=== PATIENT | female | born 1960 | race Caucasian/White ===

== ENCOUNTER 2023-02-07 10:08 | Outpatient (CLI) | payer OTHER | END 2023-02-07 10:09 | disposition home or self-care (01) | LOC: ULT 10:08 | PROVIDERS: ATTEND Family Medicine | DX: G62.9 Polyneuropathy, unspecified (principal) | CPT/HCPCS: 93923 ==

== ENCOUNTER 2023-06-01 10:39 | Inpatient (IN) | payer OTHER ==
[2023-06-01 11:31] LABS: #Basophils 0.1 thou/uL (0.0-0.2); #Eosinphils 0.1 thou/uL (0.0-0.7); #Monocytes 0.9 thou/uL (0.11-0.59); #Neutrophils 8.6 thou/uL (1.40-6.50); %Basophils 0.7 % (0.0-1.0); %Eosinophils 1.1 % (0.0-10.0); %Lymphocytes 13.8 % (21.0-51.0); %Neutrophils 75.8 % (42.0-75.0); Hematocrit 31.8 % (36.0-47.0); Hemoglobin 9.8 g/dL (12.0-16.0); Mean Corpuscular HGB CONC 30.8 g/dL (32.0-36.0); Mean Corpuscular Hemoglobin 29.6 pg (27.0-31.0); Mean Corpuscular Volume 96.1 fl (78.0-98.0); Mean Platelet Volume 9.9 fL (7.4-10.4); Platelet Count 296 10x3/uL (130-400); RBC Distribution Width 14.7 % (11.5-14.5); Red Blood Cell (RBC) Count 3.31 mill/uL (4.20-5.40); White Blood Cell (WBC) Count 11.3 10x3/uL (4.8-10.8)
[2023-06-01 11:47] LABS: ALT (SGPT) 8 U/L (8-55); AST (SGOT) 22 U/L (5-34); Albumin 3.9 g/dL (3.4-4.8); Alkaline Phosphatase 56 U/L (40-110); Anion Gap 18 mmol/L (10-20); Bilirubin, Total 0.2 mg/dL (0.2-1.2); Calc. Creatinine Clearance 0 mL/min (70-130); Calcium 9.2 mg/dL (7.8-10.44); Carbon Dioxide 20 mmol/L (23-31); Chloride 105 mmol/L (98-107); Estimated GFR 16; Globulin 3.6 g/dL (2.4-3.5); Glucose 105 mg/dL (80-115); Potassium 4.8 mmol/L (3.5-5.1); Protein, Total 7.5 g/dL (5.8-8.1); Sodium 138 mmol/L (136-145)
[2023-06-01 11:58] LABS: BUN (Urea Nitrogen) 124 mg/dL (9.8-20.1)
[2023-06-01 12:07] LABS: Troponin I Less than 0.010 ng/mL (< 0.028)
[2023-06-01] MEDS ORDERED: Acetaminophen 325 MG TAB ONE (13:07)
[2023-06-01 13:23] LABS: Bilirubin Negative (Negative); Blood, Urine Negative (Negative); CAUTI Indications for Culture Dysuria,urgency,freq; Clarity Turbid (Clear); Glucose, Urine (Dipstick) Normal (Negative); Ketone, Urine Negative (Negative); Leukocyte 500 Leu/uL (Negative); Nitrite 2+ (Negative); Protein, Urine (Dipstick) 20 mg/dL (Neg-Trace); RBC/HPF 0-3 HPF (0-3); Specific Gravity, Urine 1.018 (1.002-1.036); Squamous Epithelial 0-3 HPF (0-3); Urobilinogen Normal mg/dL (Less than 2); WBC/HPF Greater than 50 HPF (0-3); pH, Urine 5.5 (5.0-9.0)
[2023-06-01 13:24] LABS: Bacteria/HPF 1+ HPF (None Seen)
[2023-06-01 13:25] LABS: Urine Culture Reflex Yes Yes
[2023-06-01] MEDS ORDERED: Sodium Chloride 0.9% 1,000 ML IV SCH ×2 (17:00→19:02)
[2023-06-01] MEDS ORDERED: Dextrose 50% Abboject 50 ML SYRINGE SLOW IVP PRN (17:05)
[2023-06-01] MEDS ORDERED: Insulin Regular 300 UNITS/3 ML VIAL SC PRN ×2 (17:05)
[2023-06-01] MEDS ORDERED: Dextrose 5% in Water 1,000 ML IV PRN (17:05)
[2023-06-01] MEDS ORDERED: Glucagon 1 MG/ML KIT IM PRN (17:05)
[2023-06-01] MEDS ORDERED: Ondansetron ODT 4 MG TAB PO PRN (17:08)
[2023-06-01] MEDS ORDERED: Ondansetron PF 4 MG/2 ML Vial IVP PRN (17:08)
[2023-06-01] MEDS ORDERED: Calcium Carbonate 500 MG ChewTAB PO PRN (17:08)
[2023-06-01] MEDS ORDERED: GUAIFENESIN SF SOLN 200 MG/10 ML UDCUP PO PRN (17:26)
[2023-06-01] MEDS ORDERED: cefTRIAXone (ROCEPHIN) 1 GM VIAL ONE (17:34)
[2023-06-01] MEDS: Doxycycline 100 MG CAP PO SCH (20:39)
[2023-06-01] MEDS: Famotidine 20 MG TAB PO SCH (20:39)
[2023-06-01] MEDS: cefTRIAXone\\ROCEPHIN 1 GM in Sodium Chloride 0.9% 100 ML IVPB SCH (20:47)
[2023-06-02 04:07] LABS: #Basophils 0.1 thou/uL (0.0-0.2); #Eosinphils 0.1 thou/uL (0.0-0.7); #Monocytes 0.8 thou/uL (0.11-0.59); %Basophils 0.6 % (0.0-1.0); %Eosinophils 1.1 % (0.0-10.0); %Lymphocytes 14.4 % (21.0-51.0); %Monocytes 8.6 % (0.0-10.0); %Neutrophils 74.4 % (42.0-75.0); Hematocrit 32.9 % (36.0-47.0); Hemoglobin 10.2 g/dL (12.0-16.0); Mean Corpuscular Hemoglobin 29.5 pg (27.0-31.0); Mean Corpuscular Volume 95.1 fl (78.0-98.0); Mean Platelet Volume 9.9 fL (7.4-10.4); Platelet Count 325 10x3/uL (130-400); RBC Distribution Width 14.6 % (11.5-14.5); Red Blood Cell (RBC) Count 3.46 mill/uL (4.20-5.40); White Blood Cell (WBC) Count 9.4 10x3/uL (4.8-10.8)
[2023-06-02 04:37] LABS: Carbon Dioxide 21 mmol/L (23-31)
[2023-06-02 04:38] LABS: Albumin 3.7 g/dL (3.4-4.8); BUN (Urea Nitrogen) 114 mg/dL (9.8-20.1); BUN/Creatinine Ratio 49.14; Calc. Creatinine Clearance 34 mL/min (70-130); Calcium 9.4 mg/dL (7.8-10.44); Chloride 109 mmol/L (98-107); Estimated GFR 23; Glucose 98 mg/dL (80-115); Phosphorus 4.2 mg/dL (2.3-4.7); Potassium 4.4 mmol/L (3.5-5.1); Sodium 141 mmol/L (136-145)
[2023-06-02 04:48] LABS: Anion Gap 15 mmol/L (10-20)
[2023-06-02] MEDS: Nystatin Powder 15 GM BOT TOP SCH ×3 (05:30→19:22)
[2023-06-02] MEDS ORDERED: Acetaminophen 325 MG TAB PO PRN (06:00)
[2023-06-02] MEDS ORDERED: Acetaminophen 325 MG TAB PO SCH (06:15)
[2023-06-02] MEDS ORDERED: Lorazepam 1 MG TAB PO PRN (06:47)
[2023-06-02] MEDS: Doxycycline 100 MG CAP PO SCH ×2 (09:48→19:20)
[2023-06-02] MEDS: Sodium Bicarbonate Tab 325 MG TAB PO SCH ×3 (09:48→19:38)
[2023-06-02] MEDS: Famotidine 20 MG TAB PO SCH (09:48)
[2023-06-02] MEDS ORDERED: traMADol HCl 50 MG TAB PO SCH (12:00)
[2023-06-02 17:17] LABS: Creatinine, Urine 91.79 mg/dL (47-110)
[2023-06-02] MEDS: Sodium Chloride 0.9% 1,000 ML IV SCH (17:49)
[2023-06-02 18:08] LABS: Iron 37 ug/dL (50-170); Iron Binding Capacity, Total 348 mcg/dL (265-497)
[2023-06-02] MEDS: Ipratropium/Albuterol 3 ML NEB NEB SCH (19:12)
[2023-06-02] MEDS: Gabapentin 300 MG CAP PO SCH (19:19)
[2023-06-02] MEDS: HYDROcodone/Acetaminophen 7.5/325 mg Tablet PO PRN ×2 (19:20→23:53)
[2023-06-02] MEDS: Cilostazol 100 MG TAB PO SCH (19:20)
[2023-06-02] MEDS: cefTRIAXone\\ROCEPHIN 1 GM in Sodium Chloride 0.9% 100 ML IVPB SCH (19:21)
[2023-06-03] MEDS: HYDROcodone/Acetaminophen 7.5/325 mg Tablet PO PRN ×3 (04:15→20:10)
[2023-06-03] MEDS: traMADol HCl 50 MG TAB PO PRN (04:20)
[2023-06-03] MEDS: Sodium Chloride 0.9% 1,000 ML IV SCH (04:22)
[2023-06-03] MEDS: Ipratropium/Albuterol 3 ML NEB NEB SCH ×4 (07:13→18:58)
[2023-06-03] MEDS: Gabapentin 300 MG CAP PO SCH ×3 (08:38→20:09)
[2023-06-03] MEDS: Megestrol Acetate 800 MG/20 ML UDCUP PO SCH (08:38)
[2023-06-03] MEDS: Cilostazol 100 MG TAB PO SCH ×2 (08:39→20:09)
[2023-06-03] MEDS: Famotidine 20 MG TAB PO SCH (08:39)
[2023-06-03] MEDS: Doxycycline 100 MG CAP PO SCH ×2 (08:39→20:10)
[2023-06-03] MEDS: Sodium Bicarbonate Tab 325 MG TAB PO SCH ×3 (08:39→20:48)
[2023-06-03] MEDS: Nystatin Powder 15 GM BOT TOP SCH ×2 (08:40→20:12)
[2023-06-03 09:09] LABS: #Eosinphils 0.1 thou/uL (0.0-0.7); #Monocytes 0.9 thou/uL (0.11-0.59); #Neutrophils 8.5 thou/uL (1.40-6.50); %Basophils 0.4 % (0.0-1.0); %Eosinophils 0.6 % (0.0-10.0); %Lymphocytes 9.9 % (21.0-51.0); %Monocytes 8.4 % (0.0-10.0); %Neutrophils 79.8 % (42.0-75.0); Hematocrit 32.1 % (36.0-47.0); Hemoglobin 10.2 g/dL (12.0-16.0); Mean Corpuscular HGB CONC 31.8 g/dL (32.0-36.0); Mean Corpuscular Hemoglobin 30.3 pg (27.0-31.0); Mean Corpuscular Volume 95.3 fl (78.0-98.0); Mean Platelet Volume 9.7 fL (7.4-10.4); Platelet Count 295 10x3/uL (130-400); RBC Distribution Width 14.6 % (11.5-14.5); Red Blood Cell (RBC) Count 3.37 mill/uL (4.20-5.40); White Blood Cell (WBC) Count 10.6 10x3/uL (4.8-10.8)
[2023-06-03 09:54] LABS: Anion Gap 15 mmol/L (10-20); BUN (Urea Nitrogen) 66 mg/dL (9.8-20.1); Calc. Creatinine Clearance 60 mL/min (70-130); Calcium 9.4 mg/dL (7.8-10.44); Carbon Dioxide 23 mmol/L (23-31); Chloride 110 mmol/L (98-107); Estimated GFR 46; Glucose 142 mg/dL (80-115); Potassium 3.8 mmol/L (3.5-5.1); Sodium 144 mmol/L (136-145)
[2023-06-03] MEDS ORDERED: Lorazepam 2 MG/ML VIAL SLOW IVP SCH (10:00)
[2023-06-03] MEDS ORDERED: Ferrous Sulfate 325 MG TAB PO SCH (10:00)
[2023-06-03] MEDS ORDERED: Iron, Sodium Ferric Gluconate 250 MG in Sodium Chloride 0.9% 250 ML 250 ML IVPB SCH (14:00)
[2023-06-03] MEDS ORDERED: Lactated Ringer's 1,000 ML IV SCH (16:00)
[2023-06-03] MEDS: Insulin Regular 300 UNITS/3 ML VIAL SC PRN (17:40)
[2023-06-03] MEDS: Ferrous Sulfate 325 MG TAB PO SCH (17:40)
[2023-06-03] MEDS: Lactated Ringer's 1,000 ML IV SCH (20:27)
[2023-06-03] MEDS: cefTRIAXone\\ROCEPHIN 1 GM in Sodium Chloride 0.9% 100 ML IVPB SCH (20:27)
[2023-06-04] MEDS: HYDROcodone/Acetaminophen 7.5/325 mg Tablet PO PRN ×3 (00:53→17:26)
[2023-06-04] MEDS: traMADol HCl 50 MG TAB PO PRN (03:50)
[2023-06-04 05:18] LABS: #Basophils 0.1 thou/uL (0.0-0.2); #Monocytes 0.9 thou/uL (0.11-0.59); #Neutrophils 8.5 thou/uL (1.40-6.50); %Basophils 0.5 % (0.0-1.0); %Eosinophils 0.4 % (0.0-10.0); %Lymphocytes 9.5 % (21.0-51.0); %Neutrophils 80.3 % (42.0-75.0); Hematocrit 29.9 % (36.0-47.0); Hemoglobin 9.4 g/dL (12.0-16.0); Mean Corpuscular HGB CONC 31.4 g/dL (32.0-36.0); Mean Corpuscular Hemoglobin 29.7 pg (27.0-31.0); Mean Corpuscular Volume 94.6 fl (78.0-98.0); Mean Platelet Volume 10.2 fL (7.4-10.4); Platelet Count 309 10x3/uL (130-400); RBC Distribution Width 14.7 % (11.5-14.5); Red Blood Cell (RBC) Count 3.16 mill/uL (4.20-5.40); White Blood Cell (WBC) Count 10.6 10x3/uL (4.8-10.8)
[2023-06-04 05:42] LABS: Anion Gap 13 mmol/L (10-20); BUN (Urea Nitrogen) 61 mg/dL (9.8-20.1); Calc. Creatinine Clearance 65 mL/min (70-130); Calcium 9.7 mg/dL (7.8-10.44); Carbon Dioxide 24 mmol/L (23-31); Chloride 113 mmol/L (98-107); Estimated GFR 50; Glucose 128 mg/dL (80-115); Potassium 3.7 mmol/L (3.5-5.1); Sodium 146 mmol/L (136-145)
[2023-06-04] MEDS: Ipratropium/Albuterol 3 ML NEB NEB SCH ×4 (07:13→18:23)
[2023-06-04] MEDS: Megestrol Acetate 800 MG/20 ML UDCUP PO SCH (07:30)
[2023-06-04] MEDS: Sodium Bicarbonate Tab 325 MG TAB PO SCH ×3 (07:30→20:09)
[2023-06-04] MEDS: Cilostazol 100 MG TAB PO SCH ×2 (07:31→20:09)
[2023-06-04] MEDS: Gabapentin 300 MG CAP PO SCH ×3 (07:31→20:08)
[2023-06-04] MEDS: Famotidine 20 MG TAB PO SCH (07:31)
[2023-06-04] MEDS: Nystatin Powder 15 GM BOT TOP SCH ×2 (07:32→20:09)
[2023-06-04] MEDS: Ferrous Sulfate 325 MG TAB PO SCH ×2 (07:32→16:49)
[2023-06-04] MEDS: Doxycycline 100 MG CAP PO SCH ×2 (11:24→20:09)
[2023-06-04] MEDS: Lactated Ringer's 1,000 ML IV SCH (11:24)
[2023-06-04] MEDS ORDERED: traMADol HCl 50 MG TAB PO SCH (13:00)
[2023-06-04] MEDS: traMADol HCl 50 MG TAB PO SCH (17:27)
[2023-06-04] MEDS: cefTRIAXone\\ROCEPHIN 1 GM in Sodium Chloride 0.9% 100 ML IVPB SCH (20:09)
[2023-06-05] MEDS: traMADol HCl 50 MG TAB PO SCH ×5 (00:09→23:58)
[2023-06-05 05:20] LABS: Anion Gap 15 mmol/L (10-20); BUN (Urea Nitrogen) 50 mg/dL (9.8-20.1); Calc. Creatinine Clearance 75 mL/min (70-130); Calcium 9.6 mg/dL (7.8-10.44); Carbon Dioxide 23 mmol/L (23-31); Chloride 110 mmol/L (98-107); Estimated GFR 60; Glucose 109 mg/dL (80-115); Potassium 3.6 mmol/L (3.5-5.1); Sodium 144 mmol/L (136-145)
[2023-06-05] MEDS: HYDROcodone/Acetaminophen 7.5/325 mg Tablet PO PRN ×2 (06:03→19:21)
[2023-06-05] MEDS: Ipratropium/Albuterol 3 ML NEB NEB SCH ×4 (06:32→19:06)
[2023-06-05] MEDS ORDERED: Bupivacaine 0.25% HCL 30 ML VIAL ONE (07:30)
[2023-06-05] MEDS ORDERED: Lidocaine 2% PF 5 ML VIAL ONE (07:30)
[2023-06-05] MEDS ORDERED: EPINEPHrine 1 MG/ML AMP ONE (07:30)
[2023-06-05] MEDS ORDERED: fentaNYL PF 100 MCG/2 ML SYRINGE ONE (07:33)
[2023-06-05] MEDS ORDERED: Ipratropium/Albuterol 3 ML NEB ONE (08:07)
[2023-06-05] MEDS ORDERED: Midazolam HCl 2 mg/2 ml Vial ONE (09:11)
[2023-06-05] MEDS: Ferrous Sulfate 325 MG TAB PO SCH ×2 (11:59→17:56)
[2023-06-05] MEDS: Sodium Bicarbonate Tab 325 MG TAB PO SCH ×3 (12:00→20:15)
[2023-06-05] MEDS: Nystatin Powder 15 GM BOT TOP SCH ×2 (12:00→20:25)
[2023-06-05] MEDS: Gabapentin 300 MG CAP PO SCH ×3 (12:00→20:15)
[2023-06-05] MEDS: Megestrol Acetate 800 MG/20 ML UDCUP PO SCH (12:07)
[2023-06-05] MEDS: Lactated Ringer's 1,000 ML IV SCH ×2 (12:07→23:58)
[2023-06-05] MEDS: Cilostazol 100 MG TAB PO SCH ×2 (12:07→20:15)
[2023-06-05] MEDS: Doxycycline 100 MG CAP PO SCH ×2 (12:07→20:16)
[2023-06-05] MEDS: Famotidine 20 MG TAB PO SCH (12:07)
[2023-06-05] MEDS ORDERED: Amlodipine 5 MG TAB PO SCH (14:15)
[2023-06-05] MEDS: cefTRIAXone\\ROCEPHIN 1 GM in Sodium Chloride 0.9% 100 ML IVPB SCH (20:16)
[2023-06-06] MEDS: HYDROcodone/Acetaminophen 7.5/325 mg Tablet PO PRN ×3 (03:48→21:09)
[2023-06-06] MEDS: traMADol HCl 50 MG TAB PO SCH ×3 (06:19→17:25)
[2023-06-06] MEDS: Ipratropium/Albuterol 3 ML NEB NEB SCH ×3 (07:08→18:48)
[2023-06-06 07:14] LABS: #Eosinphils 0.1 thou/uL (0.0-0.7); #Neutrophils 8.8 thou/uL (1.40-6.50); %Basophils 0.3 % (0.0-1.0); %Eosinophils 1.2 % (0.0-10.0); %Lymphocytes 10.7 % (21.0-51.0); %Monocytes 8.9 % (0.0-10.0); %Neutrophils 77.6 % (42.0-75.0); Hemoglobin 10.3 g/dL (12.0-16.0); Mean Corpuscular HGB CONC 31.2 g/dL (32.0-36.0); Mean Corpuscular Hemoglobin 29.5 pg (27.0-31.0); Mean Corpuscular Volume 94.6 fl (78.0-98.0); Mean Platelet Volume 9.8 fL (7.4-10.4); Platelet Count 288 10x3/uL (130-400); RBC Distribution Width 14.8 % (11.5-14.5); Red Blood Cell (RBC) Count 3.49 mill/uL (4.20-5.40); White Blood Cell (WBC) Count 11.4 10x3/uL (4.8-10.8)
[2023-06-06 07:38] LABS: Albumin 3.5 g/dL (3.4-4.8); Anion Gap 15 mmol/L (10-20); BUN (Urea Nitrogen) 36 mg/dL (9.8-20.1); BUN/Creatinine Ratio 40.45; Calc. Creatinine Clearance 88 mL/min (70-130); Calcium 9.6 mg/dL (7.8-10.44); Carbon Dioxide 24 mmol/L (23-31); Chloride 109 mmol/L (98-107); Estimated GFR 73; Glucose 110 mg/dL (80-115); Phosphorus 2.5 mg/dL (2.3-4.7); Potassium 3.9 mmol/L (3.5-5.1); Sodium 144 mmol/L (136-145)
[2023-06-06] MEDS: Cilostazol 100 MG TAB PO SCH ×2 (08:21→21:11)
[2023-06-06] MEDS: Megestrol Acetate 800 MG/20 ML UDCUP PO SCH (08:21)
[2023-06-06] MEDS: Sodium Bicarbonate Tab 325 MG TAB PO SCH ×3 (08:22→21:09)
[2023-06-06] MEDS: Gabapentin 300 MG CAP PO SCH ×3 (08:22→21:11)
[2023-06-06] MEDS: Ferrous Sulfate 325 MG TAB PO SCH ×2 (08:23→17:26)
[2023-06-06] MEDS: Amlodipine 5 MG TAB PO SCH (08:23)
[2023-06-06] MEDS: Famotidine 20 MG TAB PO SCH (08:23)
[2023-06-06] MEDS ORDERED: fentaNYL PF 100 MCG/2 ML SYRINGE ONE (09:34)
[2023-06-06] MEDS ORDERED: Ipratropium/Albuterol 3 ML NEB ONE (10:20)
[2023-06-06] MEDS: Nystatin Powder 15 GM BOT TOP SCH ×2 (11:50→23:55)
[2023-06-06] MEDS: Doxycycline 100 MG CAP PO SCH ×2 (11:50→21:10)
[2023-06-06 16:13] LABS: A/G Ratio 0.9 (0.7-1.7); Albumin 3.1 g/dL (2.9-4.4); Alpha 1 0.3 g/dL (0.0-0.4); Gamma 1.3 g/dL (0.4-1.8); Globulin, Total 3.6 g/dL (2.2-3.9); IFE-Serum Interpretation Note: (.); IgA - Total IgA (Sendout) 321 mg/dL (87-352); Immunoglobulin - G (Sendout) 1291 mg/dL (586-1602); Immunoglobulin - M (Sendout) 41 mg/dL (26-217); M-Spike Not Observed g/dL (Not Observed)
[2023-06-06 16:57] VITALS: BMI 34.2
[2023-06-06] MEDS: Insulin Regular 300 UNITS/3 ML VIAL SC PRN (17:26)
[2023-06-06] MEDS: Senokot S 8.6-50 MG TAB PO PRN (21:10)
[2023-06-06] MEDS: cefTRIAXone\\ROCEPHIN 1 GM in Sodium Chloride 0.9% 100 ML IVPB SCH (21:11)
[2023-06-06] MEDS: Lactated Ringer's 1,000 ML IV SCH (23:55)
[2023-06-07] MEDS: traMADol HCl 50 MG TAB PO SCH ×5 (00:02→23:49)
[2023-06-07] MEDS: HYDROcodone/Acetaminophen 7.5/325 mg Tablet PO PRN (04:33)
[2023-06-07] MEDS: Ipratropium/Albuterol 3 ML NEB NEB SCH ×3 (07:10→19:50)
[2023-06-07] MEDS: Gabapentin 300 MG CAP PO SCH ×3 (09:27→20:44)
[2023-06-07] MEDS: Sodium Bicarbonate Tab 325 MG TAB PO SCH ×3 (09:27→20:44)
[2023-06-07] MEDS: Doxycycline 100 MG CAP PO SCH ×2 (09:28→20:44)
[2023-06-07] MEDS: Amlodipine 5 MG TAB PO SCH (09:28)
[2023-06-07] MEDS: Cilostazol 100 MG TAB PO SCH ×2 (09:28→20:44)
[2023-06-07] MEDS: Ferrous Sulfate 325 MG TAB PO SCH ×2 (09:28→16:50)
[2023-06-07] MEDS: Nystatin Powder 15 GM BOT TOP SCH ×2 (09:29→20:56)
[2023-06-07] MEDS: Megestrol Acetate 800 MG/20 ML UDCUP PO SCH (09:29)
[2023-06-07] MEDS: Famotidine 20 MG TAB PO SCH (09:29)
[2023-06-07] MEDS ORDERED: Lidocaine 1% w/Epinephrine 1:100K 20 ML VIAL FS SCH (14:00)
[2023-06-07] MEDS ORDERED: Lidocaine 1% PF 5 ML VIAL ONE (14:09)
[2023-06-07] MEDS ORDERED: Sodium Bicarbonate 2.5 MEQ/5 ML VIAL ONE (14:09)
[2023-06-07] MEDS: Lactated Ringer's 1,000 ML IV SCH (18:08)
[2023-06-07] MEDS: cefTRIAXone\\ROCEPHIN 1 GM in Sodium Chloride 0.9% 100 ML IVPB SCH (20:44)
[2023-06-08] MEDS: traMADol HCl 50 MG TAB PO SCH ×2 (06:20→12:07)
[2023-06-08] MEDS ORDERED: Lorazepam 0.5 MG TAB PO PRN (06:30)
[2023-06-08] MEDS: Ipratropium/Albuterol 3 ML NEB NEB SCH ×3 (07:41→18:50)
[2023-06-08] MEDS: Gabapentin 300 MG CAP PO SCH ×3 (08:27→21:47)
[2023-06-08] MEDS: Amlodipine 5 MG TAB PO SCH (08:27)
[2023-06-08] MEDS: Ferrous Sulfate 325 MG TAB PO SCH ×2 (08:27→16:45)
[2023-06-08] MEDS: Cilostazol 100 MG TAB PO SCH ×2 (08:27→21:47)
[2023-06-08] MEDS: Sodium Bicarbonate Tab 325 MG TAB PO SCH ×3 (08:27→21:47)
[2023-06-08] MEDS: Famotidine 20 MG TAB PO SCH (08:27)
[2023-06-08] MEDS: Megestrol Acetate 800 MG/20 ML UDCUP PO SCH (08:29)
[2023-06-08] MEDS: Nystatin Powder 15 GM BOT TOP SCH ×2 (08:29→21:47)
[2023-06-08] MEDS: Senokot S 8.6-50 MG TAB PO PRN (08:36)
[2023-06-08] MEDS: Doxycycline 100 MG CAP PO SCH (08:36)
[2023-06-08] MEDS ORDERED: traMADol HCl 50 MG TAB PO PRN (16:04)
[2023-06-08] MEDS: Lactated Ringer's 1,000 ML IV SCH (16:45)
[2023-06-08] MEDS ORDERED: metFORMIN 500 MG TAB PO SCH (21:00)
[2023-06-08] MEDS ORDERED: Non-Formulary Item 1 EACH (Simvastatin [Simvastatin] 80 MG Tablet) PO SCH (21:00)
[2023-06-08] MEDS: Senokot S 8.6-50 MG TAB PO SCH (21:47)
[2023-06-09] MEDS ORDERED: Sodium Chloride 0.9% 1,000 ML IV SCH ×2 (06:00→09:41)
[2023-06-09] MEDS: Ipratropium/Albuterol 3 ML NEB NEB SCH ×3 (07:44→18:50)
[2023-06-09] MEDS ORDERED: Non-Formulary Item 1 EACH (Lisinopril [Lisinopril] 40 MG Tablet) PO SCH (09:00)
[2023-06-09] MEDS: Amlodipine 5 MG TAB PO SCH (09:40)
[2023-06-09] MEDS: Cilostazol 100 MG TAB PO SCH ×2 (09:40→22:03)
[2023-06-09] MEDS: Polyethylene Glycol 3350 17 GM Packet PO SCH (09:40)
[2023-06-09] MEDS: Megestrol Acetate 800 MG/20 ML UDCUP PO SCH (09:40)
[2023-06-09] MEDS: Famotidine 20 MG TAB PO SCH (09:41)
[2023-06-09] MEDS: Senokot S 8.6-50 MG TAB PO SCH ×2 (09:41→22:03)
[2023-06-09] MEDS: Ferrous Sulfate 325 MG TAB PO SCH ×2 (09:41→16:47)
[2023-06-09] MEDS: Sodium Bicarbonate Tab 325 MG TAB PO SCH ×3 (09:41→22:03)
[2023-06-09] MEDS: Nystatin Powder 15 GM BOT TOP SCH ×2 (09:42→22:02)
[2023-06-09] MEDS: Gabapentin 300 MG CAP PO SCH ×3 (09:42→22:03)
[2023-06-09] MEDS: HYDROcodone/Acetaminophen 7.5/325 mg Tablet PO PRN ×2 (09:44→19:11)
[2023-06-10 06:39] LABS: #Basophils 0.1 thou/uL (0.0-0.2); #Eosinphils 0.1 thou/uL (0.0-0.7); #Monocytes 1.1 thou/uL (0.11-0.59); #Neutrophils 6.9 thou/uL (1.40-6.50); %Basophils 0.6 % (0.0-1.0); %Eosinophils 1.1 % (0.0-10.0); %Lymphocytes 17.5 % (21.0-51.0); %Monocytes 11.1 % (0.0-10.0); %Neutrophils 68.2 % (42.0-75.0); Hematocrit 36.2 % (36.0-47.0); Hemoglobin 11.1 g/dL (12.0-16.0); Mean Corpuscular HGB CONC 30.7 g/dL (32.0-36.0); Mean Corpuscular Hemoglobin 29.3 pg (27.0-31.0); Mean Corpuscular Volume 95.5 fl (78.0-98.0); Mean Platelet Volume 9.6 fL (7.4-10.4); Platelet Count 277 10x3/uL (130-400); Red Blood Cell (RBC) Count 3.79 mill/uL (4.20-5.40); White Blood Cell (WBC) Count 10.1 10x3/uL (4.8-10.8)
[2023-06-10] MEDS: Ipratropium/Albuterol 3 ML NEB NEB SCH ×3 (06:58→19:45)
[2023-06-10 07:05] LABS: Anion Gap 16 mmol/L (10-20); BUN (Urea Nitrogen) 24 mg/dL (9.8-20.1); Calc. Creatinine Clearance 94 mL/min (70-130); Calcium 9.3 mg/dL (7.8-10.44); Carbon Dioxide 23 mmol/L (23-31); Chloride 112 mmol/L (98-107); Estimated GFR 80; Glucose 118 mg/dL (80-115); Magnesium 1.5 mg/dL (1.6-2.6); Potassium 3.5 mmol/L (3.5-5.1); Sodium 147 mmol/L (136-145)
[2023-06-10] MEDS ORDERED: Magnesium Sulfate 4 GM in Sodium Chloride 0.9% 250 ML 250 ML IVPB SCH (07:45)
[2023-06-10] MEDS ORDERED: Magnesium Sulfate In Water 4 GM in Premix Bag 1 BAG IVPB SCH (07:45)
[2023-06-10] MEDS: Senokot S 8.6-50 MG TAB PO SCH ×2 (09:06→20:59)
[2023-06-10] MEDS: Sodium Bicarbonate Tab 325 MG TAB PO SCH ×3 (09:06→20:59)
[2023-06-10] MEDS: Polyethylene Glycol 3350 17 GM Packet PO SCH (09:06)
[2023-06-10] MEDS: Cilostazol 100 MG TAB PO SCH ×2 (09:06→20:59)
[2023-06-10] MEDS: Amlodipine 5 MG TAB PO SCH ×2 (09:07→20:59)
[2023-06-10] MEDS: Ferrous Sulfate 325 MG TAB PO SCH ×2 (09:07→16:47)
[2023-06-10] MEDS: Famotidine 20 MG TAB PO SCH ×2 (09:07→21:00)
[2023-06-10] MEDS: Megestrol Acetate 800 MG/20 ML UDCUP PO SCH (09:08)
[2023-06-10] MEDS: Gabapentin 300 MG CAP PO SCH ×3 (09:08→21:14)
[2023-06-10] MEDS: Nystatin Powder 15 GM BOT TOP SCH ×2 (09:08→21:15)
[2023-06-10] MEDS: HYDROcodone/Acetaminophen 7.5/325 mg Tablet PO PRN (09:09)
[2023-06-10] MEDS ORDERED: Morphine 2 MG/ML VIAL SLOW IVP PRN (16:04)
[2023-06-10] MEDS ORDERED: ALPRAZolam 0.25 MG TAB PO PRN (16:04)
[2023-06-10] MEDS ORDERED: hydrALAZINE 20 MG/ML VIAL SLOW IVP PRN (16:04)
[2023-06-11] MEDS: Ipratropium/Albuterol 3 ML NEB NEB SCH (07:56)
[2023-06-11 08:09] LABS: Magnesium 2.1 mg/dL (1.6-2.6)
[2023-06-11 08:12] VITALS: BP 157/92; TEMP 98
[2023-06-11] MEDS: Cilostazol 100 MG TAB PO SCH (08:53)
[2023-06-11] MEDS: Amlodipine 5 MG TAB PO SCH (08:54)
[2023-06-11] MEDS: Sodium Bicarbonate Tab 325 MG TAB PO SCH (08:54)
[2023-06-11] MEDS: Senokot S 8.6-50 MG TAB PO SCH (08:54)
[2023-06-11] MEDS: Gabapentin 300 MG CAP PO SCH (08:54)
[2023-06-11] MEDS: Ferrous Sulfate 325 MG TAB PO SCH (08:54)
[2023-06-11] MEDS: Polyethylene Glycol 3350 17 GM Packet PO SCH (08:55)
[2023-06-11] MEDS: Nystatin Powder 15 GM BOT TOP SCH (08:55)
[2023-06-11] MEDS: Famotidine 20 MG TAB PO SCH (08:55)
[2023-06-11] MEDS: Megestrol Acetate 800 MG/20 ML UDCUP PO SCH (08:55)
== END 2023-06-11 10:30 | disposition hospice, home (50) | DRG 166 ==
LOC: ERS 10:39 → 2NO 17:00 → T4-B 06-07 14:54
PROVIDERS: ADMIT Internal Medicine; ATTEND Family Medicine
PROC: 02HV33Z Insertion of Infusion Device into Superior Vena Cava, Percutaneous Approach (ICD-10-PCS; 2023-06-05)
PROC: B548ZZA Ultrasonography of Superior Vena Cava, Guidance (ICD-10-PCS; 2023-06-05)
PROC: 0HB0XZX Excision of Scalp Skin, External Approach, Diagnostic (ICD-10-PCS; 2023-06-05)
PROC: 3E033XZ Introduction of Vasopressor into Peripheral Vein, Percutaneous Approach (ICD-10-PCS; 2023-06-05)
PROC: B5181ZA Fluoroscopy of Superior Vena Cava using Low Osmolar Contrast, Guidance (ICD-10-PCS; 2023-06-05)
PROC: 0JH63XZ Insertion of Tunneled Vascular Access Device into Chest Subcutaneous Tissue and Fascia, Percutaneous Approach (ICD-10-PCS; 2023-06-05)
PROC: 0PB13ZX Excision of 1 to 2 Ribs, Percutaneous Approach, Diagnostic (ICD-10-PCS; principal; 2023-06-07)
DX: D49.1 Neoplasm of unspecified behavior of respiratory system (principal); I26.99 Other pulmonary embolism without acute cor pulmonale; C79.51 Secondary malignant neoplasm of bone; N17.9 Acute kidney failure, unspecified; N39.0 Urinary tract infection, site not specified; E87.20 Acidosis, unspecified; C79.70 Secondary malignant neoplasm of unspecified adrenal gland; I13.0 Hypertensive heart and chronic kidney disease with heart failure and stage 1 through stage 4 chronic kidney disease, or unspecified chronic kidney disease; M84.48XA Pathological fracture, other site, initial encounter for fracture; E87.0 Hyperosmolality and hypernatremia; R91.8 Other nonspecific abnormal finding of lung field; Z51.5 Encounter for palliative care; Z66 Do not resuscitate; E78.5 Hyperlipidemia, unspecified; R30.0 Dysuria; E11.22 Type 2 diabetes mellitus with diabetic chronic kidney disease; N18.30 Chronic kidney disease, stage 3 unspecified; F17.210 Nicotine dependence, cigarettes, uncomplicated; B35.6 Tinea cruris; G47.33 Obstructive sleep apnea (adult) (pediatric); R59.0 Localized enlarged lymph nodes; E86.9 Volume depletion, unspecified; B96.20 Unspecified Escherichia coli [E. coli] as the cause of diseases classified elsewhere; D63.1 Anemia in chronic kidney disease; R90.89 Other abnormal findings on diagnostic imaging of central nervous system; I50.9 Heart failure, unspecified; Z71.6 Tobacco abuse counseling; Z88.0 Allergy status to penicillin; Z88.8 Allergy status to other drugs, medicaments and biological substances; Z86.73 Personal history of transient ischemic attack (TIA), and cerebral infarction without residual deficits; Z98.891 History of uterine scar from previous surgery; Z82.49 Family history of ischemic heart disease and other diseases of the circulatory system; Z80.1 Family history of malignant neoplasm of trachea, bronchus and lung; Z79.899 Other long term (current) drug therapy; Z79.84 Long term (current) use of oral hypoglycemic drugs
CPT/HCPCS: 36415; 36416; 51701; 70450; 71046; 71250; 76770; 76999; 78306; 78451; 80048; 80053; 80069; 81001; 82550; 82570; 82728; 83540; 83550; 83735; 83880; 84155; 84156; 84165; 84300; 84484; 84540; 85025; 85379; 85730; 86334; 87040; 87077; 87086; 87186; 88305; 88307; 88333; 88334; 88341; 88342; 88360; 93005; 93306; 93970; 94640; 96361; 96365; A9503; A9540; C1713; C1788; J0171; J0696; J1642; J1650; J1815; J2001; J2060; J2250; J2916; J3475; J3490; J7050; J7120; J7620; S0020